=== PATIENT | female | born 1995 | race Caucasian/White ===

== ENCOUNTER → 2023-08-07 13:14 | Outpatient (REF) | payer BC, SELFPAY | LOC: HWRAD 13:14 | PROVIDERS: ATTENDING PHYSICIAN Nurse Practitioner Family; FAMILY PHYSICIAN Family Medicine | DX: Z34.90 Encounter for supervision of normal pregnancy, unspecified, unspecified trimester (principal) | CPT/HCPCS: 76801 ==

== ENCOUNTER → 2023-10-05 08:06 | Outpatient (REF) | payer BC, SELFPAY | LOC: PNTC 08:06 | PROVIDERS: ATTENDING PHYSICIAN Obstetrics & Gynecology | DX: O35.5XX0 Maternal care for (suspected) damage to fetus by drugs, not applicable or unspecified (principal) | CPT/HCPCS: 76811 ==

== ENCOUNTER 2024-02-22 19:59 | Inpatient (IN) | payer BC, SELFPAY ==
[2024-02-22 20:28] VITALS: BMI 29.7
[2024-02-22 20:31] VITALS: BP 143/97
[2024-02-22 21:01] LABS: % Basophils 0.1 % (0-2); % Eosinophils 0.7 % (0-6); % Immature Granulocytes 0.6 % (0-0.5); % Lymphocytes 13.9 % (20.5-51.1); % Monocytes 8.9 % (1.7-9.3); % Neutrophils 75.8 % (42.2-75.2); Absolute Eosinophils 0.1 10^3/uL (0-0.7); Absolute Immature Granulocytes 0.1 10^3/uL (0-0.05); Absolute Lymphocytes 1.7 10^3/uL (1.2-3.4); Absolute Monocytes 1.1 10^3/uL (0.1-0.6); Hemoglobin 11.7 g/dL (12.0-16.0); Mean Corp Hgb Conc. 34.4 g/dL (33.0-37.0); Mean Corpuscular Hgb 30.4 pg (27.0-31.0); Mean Corpuscular Volume 88.3 fL (81.0-99.0); Mean Platelet Volume 12.3 fL (7.4-10.4); Nucleated Red Blood Cells % 0 %; Platelet Count 141 10^3/uL (130-400); Red Blood Cell Count 3.85 10^6/uL (4.20-5.40); Red Cell Dist. Width 14.1 % (11.5-14.5); White Blood Cell Count 11.9 10^3/uL (4.8-10.8)
[2024-02-22] MEDS: CYTOTEC 50 MICROGRAM VAG (21:10)
[2024-02-22 22:23] LABS: ALT (SGPT) 15 U/L (0-35); AST (SGOT) 25 U/L (14-36); Albumin 3.5 g/dl (3.5-5.0); Alkaline Phosphatase 258 U/L (38-126); Blood Urea Nitrogen 12 mg/dl (7-17); Calcium 9.8 mg/dl (8.4-10.2); Carbon Dioxide 22 mmol/L (22-30); Chloride 104 mmol/L (98-107); Estimated Creatinine Clearance 113 ml/min; Glucose 94 mg/dl (70-99); Potassium 4.3 mmol/L (3.5-5.1); Sodium 135 mmol/L (135-145); Total Bilirubin 0.2 mg/dl (0.2-1.3); eGFR > 60.00
[2024-02-22] MEDS: CYTOTEC PO (22:57)
[2024-02-22] MEDS: ABILIFY 10 MG PO (22:57)
[2024-02-23] MEDS: LR 1000 IV ×2 (01:16→11:03)
[2024-02-23] MEDS: CYTOTEC 50 MICROGRAM PO ×2 (01:16→05:12)
[2024-02-23] MEDS: CYTOTEC PO (10:49)
[2024-02-23] MEDS: PITOCIN 30 UNITS/NSS 500 ML IV (11:02)
[2024-02-23] MEDS: PENICILLIN 110 UNITS IV (11:34)
[2024-02-23 11:38] LABS: Protein/creatinine Ratio 0.7; Urine Protein 28 mg/dl
[2024-02-23] MEDS: PENICILLIN 55 UNITS IV ×2 (15:40→19:36)
[2024-02-23] MEDS: SUBLIMAZE 100 MCG EPIDURAL (17:05)
[2024-02-23] MEDS: FENTANYL/BUPIVACAINE 100 EPIDURAL (17:06)
[2024-02-23] MEDS: BICITRA 30 ML PO (20:09)
[2024-02-23] MEDS: TYLENOL 1000 MG PO (20:09)
[2024-02-23] MEDS: ANCEF 10 IV (20:09)
[2024-02-23 20:37] LABS: Cord ABG Comment CORD BLOOD
[2024-02-23 20:38] LABS: B.E. Cord ABG -4.4 mMOL/L; HCO3 Cord ABG 21.6 mmol/L; PCO2 Cord ABG 42 mmHg; PO2 Cord ABG 23 mmHg; pH Cord ABG 7.32
[2024-02-23 20:41] LABS: B.E. Cord ABG -4.2 mMOL/L; HCO3 Cord ABG 23.4 mmol/L; O2 Saturation % Cord ABG 10.6 %; PCO2 Cord ABG 51 mmHg; PO2 Cord ABG 7 mmHg; pH Cord ABG 7.27
[2024-02-23] MEDS: ZITHROMAX INFUSION 250 IV (21:15)
[2024-02-23] MEDS: ABILIFY 10 MG PO (22:45)
[2024-02-23] MEDS: TORADOL 15 MG IV (23:06)
--- NOTE | 2024-02-24 03:08 | DOWNTIME ---
There was a [employer] Downtime on 02/24/2024 from 0100 to 02/24/2024 at 0252. Downtime documentation of patient's care, including medication administrations, has been reconciled in the electronic record per guidelines. Refer to the
patient's paper chart under the miscellaneous tab to see printed paper medication records and downtime forms.
[2024-02-24] MEDS: TORADOL 15 MG IV ×3 (04:47→16:56)
[2024-02-24 05:58] LABS: Hematocrit 29.4 % (37.0-47.0); Hemoglobin 10.1 g/dL (12.0-16.0); Mean Corp Hgb Conc. 34.4 g/dL (33.0-37.0); Mean Corpuscular Hgb 30.8 pg (27.0-31.0); Mean Corpuscular Volume 89.6 fL (81.0-99.0); Mean Platelet Volume 12.8 fL (7.4-10.4); Platelet Count 115 10^3/uL (130-400); Red Blood Cell Count 3.28 10^6/uL (4.20-5.40); Red Cell Dist. Width 14.1 % (11.5-14.5); White Blood Cell Count 14.1 10^3/uL (4.8-10.8)
--- NOTE | 2024-02-24 07:45 | W.PN.ANS.POP ---
Anesthesia Post Operative
- Anesthesia Post Op Note
Vital Signs Stable-See Nursing Note: Yes
Airway Patent: Yes
Adequate Pain Control: Yes
Change in Mental Status: No
Current Postoperative Nausea & Vomiting: No
Anesthesia Complications: No
General Anesthetic Recall: No
Unplanned Admission: No
Post Op Hydration Adequate: Yes
[2024-02-24] MEDS: PRENATAL PLUS 1 TABLET PO (08:40)
[2024-02-24] MEDS: FEOSOL 325 MG PO (08:40)
[2024-02-24] MEDS: SENOKOT-S 1 TABLET PO (08:40)
[2024-02-24] MEDS: FLUSH (NSS) 1 FLUSH IV ×2 (11:31→16:56)
[2024-02-24] MEDS: ABILIFY 10 MG PO (22:06)
[2024-02-24] MEDS: TYLENOL 650 MG PO (23:26)
[2024-02-24] MEDS: MOTRIN 600 MG PO (23:26)
[2024-02-25 04:36] LABS: Hematocrit 26.5 % (37.0-47.0); Mean Corpuscular Hgb 30.7 pg (27.0-31.0); Mean Corpuscular Volume 90.4 fL (81.0-99.0); Mean Platelet Volume 12.4 fL (7.4-10.4); Platelet Count 103 10^3/uL (130-400); Red Blood Cell Count 2.93 10^6/uL (4.20-5.40); Red Cell Dist. Width 14.4 % (11.5-14.5); White Blood Cell Count 9.9 10^3/uL (4.8-10.8)
[2024-02-25] MEDS: MOTRIN 600 MG PO ×3 (05:51→19:00)
[2024-02-25] MEDS: TYLENOL 650 MG PO ×3 (05:51→18:03)
[2024-02-25] MEDS: PRENATAL PLUS PO (08:20)
[2024-02-25] MEDS: FEOSOL 325 MG PO (08:20)
[2024-02-25] MEDS: ABILIFY 10 MG PO (21:46)
[2024-02-26] MEDS: TYLENOL 650 MG PO (07:46)
[2024-02-26] MEDS: FEOSOL 325 MG PO (07:46)
[2024-02-26] MEDS: MOTRIN 600 MG PO (07:46)
[2024-02-26] MEDS: PRENATAL PLUS PO (08:29)
[2024-02-26 08:45] LABS: Platelet Count 122 10^3/uL (130-400)
[2024-02-26 11:12] LABS: Syphilis/T. pallidum Ab Reflex Negative (Negative)
[2024-02-26] MEDS: TRANDATE 100 MG PO (11:16)
--- NOTE | 2024-02-26 13:50 | W.DS.TRANS ---
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
-
Discharge Instructions:
Discharge Diagnosis/Procedures delivered by csection; nonreassuring
heart rate pattern; preeclampsia without
severe features
Diet Regular
Activity No strenuous activity
Driving Restrictions No driving for 2 weeks
Bathing Restrictions OK to Shower
Instructions:
Stand-Alone Forms: LDRP Delivery
LDRP Hypertensive Disorders
Changes to Home Medications: No
Discharge Medications:
DC Medications w/original date entered in [facility]
escitalopram oxalate 10 mg tablet 10 mg PO DAILY 03/20/16
ferrous sulfate 325 mg (65 mg iron) tablet (Iron (ferrous sulfate)) 325 mg PO DAILY 02/22/24
vitamin-ferrous fumarate 28 mg iron-folic acid 800 mcg tablet ( Tablet) 1 tab PO DAILY 02/22/24
acetaminophen 325 mg tablet 650 mg (2 x 325 mg) PO Q4HPRN PRN mild pain #0 tabs 02/26/24
aripiprazole 5 mg tablet 10 mg (2 x 5 mg) PO HS #0 tabs 02/26/24
ibuprofen 600 mg tablet 600 mg PO Q6HPRN PRN cramps #0 tabs 02/26/24
labetalol 100 mg tablet 100 mg PO BID #60 tabs 02/26/24
Home Medication Changes
Pending Results: Yes
Additional Pending Results:
placental path
Total time spent discharging patient (in min): 30
== END 2024-02-26 12:37 | disposition home or self-care (01) | DRG 787 ==
LOC: LDRP 19:59
PROVIDERS: Obstetrics & Gynecology; ADMITTING PHYSICIAN Obstetrics & Gynecology; FAMILY PHYSICIAN Physician Assistant Medical; REFERRING PHYSICIAN Obstetrics & Gynecology
PROC: 3E0P7VZ Introduction of Hormone into Female Reproductive, Via Natural or Artificial Opening (ICD-10-PCS; 2024-02-22)
PROC: 10D00Z1 Extraction of Products of Conception, Low, Open Approach (ICD-10-PCS; 2024-02-23)
DX: O48.0 Post-term pregnancy (principal); O99.12 Other diseases of the blood and blood-forming organs and certain disorders involving the immune mechanism complicating childbirth; Z3A.40 40 weeks gestation of pregnancy; O99.824 Streptococcus B carrier state complicating childbirth; O14.04 Mild to moderate pre-eclampsia, complicating childbirth; O76 Abnormality in fetal heart rate and rhythm complicating labor and delivery; O69.81X0 Labor and delivery complicated by cord around neck, without compression, not applicable or unspecified; D69.6 Thrombocytopenia, unspecified; Z37.0 Single live birth
CPT/HCPCS: 88307; 36415; 80053; 82570; 82803; 84156; 85025; 85027; 85049; 86780; 86850; 86900; 86901

== ENCOUNTER 2024-02-26 21:16 | Inpatient (IN) | payer BC, SELFPAY ==
[2024-02-26 21:45] VITALS: BP 140/77; BMI 29.1
[2024-02-26 22:12] LABS: % Basophils 0.1 % (0-2); % Eosinophils 1.5 % (0-6); % Immature Granulocytes 0.6 % (0-0.5); % Monocytes 7.5 % (1.7-9.3); % Neutrophils 76.3 % (42.2-75.2); Absolute Eosinophils 0.2 10^3/uL (0-0.7); Absolute Immature Granulocytes 0.1 10^3/uL (0-0.05); Absolute Lymphocytes 1.5 10^3/uL (1.2-3.4); Absolute Monocytes 0.8 10^3/uL (0.1-0.6); Absolute Neutrophils 8.4 10^3/uL (1.4-6.5); Hematocrit 28.4 % (37.0-47.0); Hemoglobin 9.6 g/dL (12.0-16.0); Mean Corp Hgb Conc. 33.8 g/dL (33.0-37.0); Mean Corpuscular Hgb 30.2 pg (27.0-31.0); Mean Corpuscular Volume 89.3 fL (81.0-99.0); Mean Platelet Volume 11.7 fL (7.4-10.4); Nucleated Red Blood Cells % 0 %; Platelet Count 142 10^3/uL (130-400); Red Blood Cell Count 3.18 10^6/uL (4.20-5.40); Red Cell Dist. Width 13.9 % (11.5-14.5)
[2024-02-26 22:37] LABS: ALT (SGPT) 18 U/L (0-35); AST (SGOT) 35 U/L (14-36); Albumin 3.3 g/dl (3.5-5.0); Alkaline Phosphatase 179 U/L (38-126); Blood Urea Nitrogen 9 mg/dl (7-17); Calcium 9.6 mg/dl (8.4-10.2); Carbon Dioxide 23 mmol/L (22-30); Chloride 110 mmol/L (98-107); Estimated Creatinine Clearance 108 ml/min; Glucose 98 mg/dl (70-99); Potassium 3.9 mmol/L (3.5-5.1); Sodium 142 mmol/L (135-145); Total Bilirubin 0.3 mg/dl (0.2-1.3); Total Protein 5.8 g/dl (6.3-8.2); eGFR > 60.00
[2024-02-27] MEDS: MOTRIN 600 MG PO (00:45)
[2024-02-27] MEDS: MAGNESIUM SULFATE 100 IV (08:28)
[2024-02-27] MEDS: LR 1000 IV ×2 (08:31→20:16)
[2024-02-27] MEDS: TRANDATE 200 MG PO ×3 (08:35→20:15)
[2024-02-27] MEDS: MAGNESIUM SULFATE 40 GRAM 1000 IV (08:56)
[2024-02-27] MEDS: ABILIFY 10 MG PO (09:59)
[2024-02-27] MEDS: TYLENOL 650 MG PO (16:00)
[2024-02-28] MEDS: MOTRIN 600 MG PO ×2 (01:32→10:49)
[2024-02-28] MEDS: MAGNESIUM SULFATE 40 GRAM 1000 IV (03:37)
[2024-02-28] MEDS: TRANDATE 200 MG PO (08:00)
[2024-02-28] MEDS: ABILIFY 10 MG PO (08:00)
== END 2024-02-28 14:03 | disposition home or self-care (01) | DRG 776 ==
LOC: LDRP 21:16
PROVIDERS: ADMITTING PHYSICIAN Obstetrics & Gynecology
DX: O14.15 Severe pre-eclampsia, complicating the puerperium (principal)
CPT/HCPCS: 80053; 85025

== ENCOUNTER 2024-06-02 04:14 | Emergency (ER) | payer BC, SELFPAY ==
[2024-06-02 04:15] VITALS: BP 143/75
--- NOTE | 2024-06-02 05:01 | ED.GENMED ---
History of Present Illness
General
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
Time Seen by Provider: 06/02/24 04:36
History of Present Illness
History of Present Illness:
29-year-old female, 3 months , presenting for heavy menstrual cycle. Patient reports that this is her second menstrual cycle since having her baby. Last month the menstrual cycle was very heavy, however her cycle started yesterday and
she feels that it is even heavier. She notes that she is passing clots, and changing her tampon about every hour. Denies issues with her menstrual cycle prior to giving . Denies any associate abdominal pain. Denies weakness or
lightheadedness. Does report that she is feeling very anxious. Denies chest pain or difficulty breathing. Denies urinary complaints. Denies additional acute medical complaints
Past History
Past History
ED Past Medical History: None
Social History
Personal: Single
Phy Exam
Physical Exam
Physical Exam:
General: Well-appearing, no clinical signs of dehydration, nontoxic and in no acute distress
HEENT: protecting airway
Neck: appears supple
CV: Normal heart rate, regular rhythm
Resp: No accessory muscle use, no increased work of breathing, lungs clear to auscultation bilaterally
Abd: Soft and non-distended, no tenderness to palpation
Extremities: No deformities, no swelling, no erythema
Neuro: alert, no focal neurologic deficit
: Scant blood in the vaginal vault, no pooling
Rectal: deferred
Psych: Normal affect
Skin: Intact
Course
Orders/Labs/Results
Orders:
Orders
06/02/24 04:44
Test Result ONCE
06/02/24 05:03
Complete Blood Count/With Diff Urgent
Comprehensive Metabolic Panel Urgent
, Urine Qualitative Screen [HCG, Urine Qualitative Screen] Urgent
Date Specimen was Collected: 06/02/24
Time Specimen was Collected: 04:52
Urinalysis Reflex To Culture Urgent
Date Specimen was Collected: 06/02/24
Time Specimen was Collected: 04:52
Urine Microscopic Reflex Cult Urgent
Urine Culture Urgent
SHANDA Source: U
Specimen Description:
Date Specimen was Collected: 06/02/24
Time Specimen was Collected: 04:52
Abnormal Lab Results
06/02/24
05:03
MCHC 32.6 L g/dL
(33.0-37.0)
MPV 10.6 H fL
(7.4-10.4)
Absolute Monos (auto) 0.7 H 10^3/uL
(0.1-0.6)
Chloride 108 H mmol/L
(98-107)
Ur Occult Blood Reflex 4+ A
(Negative)
Urine Nitrite (Reflex) Positive A
(Negative)
Urine Bilirubin 1+ A
(Negative)
Leukocyte Esterase Rfl 1+ A
(Negative)
Urine Albumin (Reflex) 1+ A
(Neg - Trace)
06/02/24 05:03
06/02/24 05:03
Vital Signs
Initial and Last Documented VS:
Initial Vital Signs
Temp Pulse Resp BP Pulse Ox
98.0 F 121 18 143/75 100
06/02/24 04:15 06/02/24 04:15 06/02/24 04:15 06/02/24 04:15 06/02/24 04:15
Last Documented Vital Signs
Temp Pulse Resp BP Pulse Ox
98.0 F 121 18 143/75 100
06/02/24 04:15 06/02/24 04:15 06/02/24 04:15 06/02/24 04:15 06/02/24 04:15
MDM/Problems Addressed
MDM/Problems Addressed:
29-year-old female, 3 months , presenting for heavy menstrual cycle since yesterday. Vital signs on arrival significant for tachycardia, however patient notes that she is feeling very anxious.
On exam, patient is in no acute distress. No clinical signs of dehydration. Abdominal exam benign without any focal tenderness to the abdomen. Pelvic exam performed, scant blood in the vaginal vault without pooling. At this time lower suspicion
for any significant hemorrhage. Suspect dysfunctional uterine bleeding, likely regulating after giving . Will screen with laboratory analysis and urinalysis.
05:45 - Patient with normal hemoglobin, without any indication for emergent transfusion. Urine however does show signs of infection and patient notes that she is prone to urinary tract infections. Will start her on an antibiotic. Feel stable for
discharge, however with outpatient interval follow-up with gynecology. Return precautions discussed and patient verbalized understanding
*Critical Care Note
Total Time (30-74mins, 75-104mins- exclusive of procedures): Not Applicable
ED Attending Note
-
Portions of this chart may have been created with voice recognition software.� Occasional wrong word or��sound alike� substitutions may have occurred due to the inherent limitations of voice recognition software.
Discharge Plan
Departure
Prescriptions:
No Action
vit-iron fum-folic ac [ Tablet] 28 mg iron- 800 mcg Tablet
1 tab PO DAILY
ibuprofen 600 mg Tablet
600 mg PO Q6HPRN PRN (Reason: cramps) Qty: 0 0RF
aripiprazole 5 mg tablet
10 mg PO HS
labetalol 200 mg Tablet
200 mg PO BID Qty: 14 0RF
Referrals:
UNKNOWN - PT DOES,NOT KNOW [Family Provider] -
Interventions
Interventions:
*Risk Screen - Suicide Last Done: 06/02/24 04:15
*General Assessment Last Done: 06/02/24 05:12
*Neglect/Abuse Screening Last Done: 06/02/24 05:12
*ED COVID-19 Vaccine History Last Done: 06/02/24 05:12
ED-Female Genitourinary Assessment Last Done: 06/02/24 05:12
Discharge Date and Time
Print Language: WOLOF
[2024-06-02 05:12] LABS: Urine Albumin 1+ (Neg - Trace); Urine Bilirubin 1+ (Negative); Urine Character Very Cloudy (Clear); Urine Color Red; Urine Glucose Negative (Negative); Urine Ketone Negative (Negative); Urine Leukocyte 1+ (Negative); Urine Nitrite Positive (Negative); Urine Occult Blood 4+ (Negative); Urine Urobilinogen Negative (Neg - 1+)
[2024-06-02 05:16] LABS: % Basophils 0.2 % (0-2); % Eosinophils 1.5 % (0-6); % Immature Granulocytes 0.2 % (0-0.5); % Lymphocytes 24.1 % (20.5-51.1); % Monocytes 8.3 % (1.7-9.3); % Neutrophils 65.7 % (42.2-75.2); Absolute Eosinophils 0.1 10^3/uL (0-0.7); Absolute Monocytes 0.7 10^3/uL (0.1-0.6); Absolute Neutrophils 5.4 10^3/uL (1.4-6.5); Hematocrit 40.2 % (37.0-47.0); Hemoglobin 13.1 g/dL (12.0-16.0); Mean Corp Hgb Conc. 32.6 g/dL (33.0-37.0); Mean Corpuscular Hgb 29.5 pg (27.0-31.0); Mean Corpuscular Volume 90.5 fL (81.0-99.0); Mean Platelet Volume 10.6 fL (7.4-10.4); Nucleated Red Blood Cells % 0 %; Platelet Count 271 10^3/uL (130-400); Red Blood Cell Count 4.44 10^6/uL (4.20-5.40); Red Cell Dist. Width 12.9 % (11.5-14.5); White Blood Cell Count 8.2 10^3/uL (4.8-10.8)
[2024-06-02 05:29] LABS: ALT (SGPT) 23 U/L (0-35); AST (SGOT) 23 U/L (14-36); Albumin 4.5 g/dl (3.5-5.0); Alkaline Phosphatase 63 U/L (38-126); Blood Urea Nitrogen 14 mg/dl (7-17); Calcium 9.8 mg/dl (8.4-10.2); Carbon Dioxide 22 mmol/L (22-30); Chloride 108 mmol/L (98-107); Glucose 98 mg/dl (70-99); Potassium 3.8 mmol/L (3.5-5.1); Sodium 144 mmol/L (135-145); Total Bilirubin 0.2 mg/dl (0.2-1.3); Total Protein 7.2 g/dl (6.3-8.2); eGFR > 60.00
[2024-06-02 05:30] LABS: HCG, Urine Qualitative Screen Negative
[2024-06-02 05:55] LABS: Urine Squamous Cell SEEN /LPF (Few)
[2024-06-02 05:56] LABS: Urine Amorphous Seen; Urine Bacteria Many (Negative); Urine Red Blood Cell >100 /HPF (0-2)
[2024-06-02] MEDS: KEFLEX 500 MG PO (05:59)
== END 2024-06-02 06:09 | disposition home or self-care (01) ==
LOC: EMR 04:14
PROVIDERS: EMERGENCY PHYSICIAN Student in an Organized Health Care Education/Training Program
DX: N92.0 Excessive and frequent menstruation with regular cycle (principal); N39.0 Urinary tract infection, site not specified
CPT/HCPCS: 99283; 80053; 81003; 81015; 81025; 85025; 87077; 87086; 87147

== ENCOUNTER → 2025-04-12 12:48 | Outpatient (REF) | payer BC, SELFPAY | LOC: HWRAD 12:48 | PROVIDERS: ATTENDING PHYSICIAN Student in an Organized Health Care Education/Training Program | DX: R22.0 Localized swelling, mass and lump, head (principal) | CPT/HCPCS: 76536 ==